=== PATIENT | female | born 1985 | race Caucasian/White ===

== ENCOUNTER → 2017-08-26 07:13 | Outpatient (CLI) | payer OTHER, SELFPAY ==
--- NOTE | 2017-08-26 | DI.US.S_ITS ---
PROCEDURE: US OB >= 14 WEEKS FETUS INDICATIONS: 20 WEEK ANATOMICAL SURVEY OUTSIDE/PRIOR DATING DATA: Last menstrual period (LMP): 04/08/17. LMP-based estimated date of delivery (LUCILLE): 01/13/18. First dating scan (date and location): 06/24/17. Estimated date of delivery (LUCILLE) from first dating scan: 01/11/18. TECHNIQUE: Real-time scanning was performed of the fetus, with image documentation and biometric measurements. Endovaginal scanning: No COMPARISON: [facility], OB COMPLETE LESS THAN 14 WKS, 06/24/2017, 13:20. FINDINGS: General: A single living intrauterine gestation is present. Presentation: Vertex. Placenta: Placental position is anterior, without previa. Amniotic fluid index: 15.8 cm, normal range is 5-24 cm. heart rate: 144 beats per minute. Maternal cervical canal: 3.2 cm long. Normal lower limit is 2.5 cm. biometrics: Biparietal diameter: 20 weeks 1 day Head circumference: 20 weeks 4 days Abdominal circumference: 20 weeks 5 days Femur length: 20 weeks 2 days Estimated gestational age from initial scan: 20 weeks 2 days Composite gestational age from present scan: 20 weeks 3 days Estimated weight and percentile: 359 g, 59th percentile Measurement variability for biometric dating: +/- 7 days from 14 weeks to 15 weeks 6 days gestation, +/- 10 days from 16 weeks to 21 weeks 6 days gestation, +/- 2 weeks from 22 weeks to 27 weeks 6 days gestation, +/- 3 weeks for 28 weeks gestation or later. weight reference: 4500 g or EFW >90/95% is considered macrosomia or large for gestational age. EFW <10% is small for gestational age. EFW 5% or less is considered intra-uterine growth restriction. Anatomic survey: Neuro: Ventricles are non-dilated at less than 10 mm. Cisterna magna is normal at 3-11 mm. Cerebellum is normal in size and morphology. Nuchal skin fold: Normal at less than 6 mm between 14-21 weeks gestational age. Face: Nose and lips, facial profile are normal. Spine: No evidence for spina bifida. Heart: 4-chambered heart is present, with normal ventricular outflow tracts. Diaphragm: Diaphragm is intact. Stomach: Left-sided stomach is present. Kidneys: No hydronephrosis. Normal is less than 5 mm in 2nd trimester, less than 7 mm in 3rd trimester. Cord: 3-vessel cord has orthotopic insertion. Bladder: Normal in size. Extremities: All 4 extremities identified. IMPRESSION: 1. Single living IUP redemonstrated and interval growth is normal. 2. Normal anatomic survey. Dictated by: Stone OROZCO Interpreted: Jonah Early MD on 08/26/2017 at 8:43 Approved by: Jonah Early M.D. on 08/26/2017 at 13:21
== END ==
PROVIDERS: Family Provider Family Medicine; PCP Family Medicine; Visit Provider Family Medicine
DX: Z34.92 Encounter for supervision of normal pregnancy, unspecified, second trimester (principal); Z3A.20 20 weeks gestation of pregnancy
CPT/HCPCS: 76811

== ENCOUNTER → 2017-11-11 13:34 | Outpatient (CLI) | payer OTHER, SELFPAY ==
--- NOTE | 2017-11-11 | DI.US.S_ITS ---
PROCEDURE: US OB LIMITED INDICATIONS: THIRD TRIMESTER BLEEDING/SIZE GREATER THAN DATES OUTSIDE/PRIOR DATING DATA: Last menstrual period (LMP): 04/08/2017. LMP-based estimated date of delivery (LUCILLE): 01/13/2018. First dating scan (date and location): 06/24/2017. Estimated date of delivery (LUCILLE) from first dating scan: 01/11/2018. TECHNIQUE: Real-time scanning was performed of the fetus, with image documentation and biometric measurements. Endovaginal scanning: Not required COMPARISON: [facility], OB >= 14 WEEKS FETUS, 08/26/2017, 7:26. FINDINGS: General: A single living intrauterine gestation is present. Presentation: Vertex. Placenta: Placental position is anterior, without previa. Amniotic fluid index: 16.1 cm, normal range is 5-24 cm. heart rate: 143 beats per minute. Maternal cervical canal: 4.0 cm long. Normal lower limit is 2.5 cm. biometrics: Biparietal diameter: 30 weeks 6 days Head circumference: 31 weeks 3 days Abdominal circumference: 32 weeks 4 days Femur length: 32 weeks 3 days Estimated gestational age from initial scan: 31 weeks 2 days Composite gestational age from present scan: 31 weeks 6 days, normal growth Estimated weight and percentile: 1929 g at the 70th percentile Measurement variability for biometric dating: +/- 7 days from 14 weeks to 15 weeks 6 days gestation, +/- 10 days from 16 weeks to 21 weeks 6 days gestation, +/- 2 weeks from 22 weeks to 27 weeks 6 days gestation, +/- 3 weeks for 28 weeks gestation or later. weight reference: 4500 g or EFW >90/95% is considered macrosomia or large for gestational age. EFW <10% is small for gestational age. EFW 5% or less is considered intra-uterine growth restriction. Other: Not applicable. IMPRESSION: 1. Single, live intrauterine gestation in Vertex lie showing composite gestational age of 31 weeks 6 days, normal growth. 2. Anterior placenta shows no previa or abruption. Dictated by: Julian Matt M.D. on 11/11/2017 at 14:49 Approved by: Julian Matt M.D. on 11/11/2017 at 14:52
== END ==
PROVIDERS: Family Provider Family Medicine; PCP Family Medicine; Visit Provider Family Medicine
DX: Z34.93 Encounter for supervision of normal pregnancy, unspecified, third trimester (principal); Z3A.31 31 weeks gestation of pregnancy
CPT/HCPCS: 76815; 87070; 87205

== ENCOUNTER → 2017-12-19 11:50 | Outpatient (REF) | payer OTHER, SELFPAY | LOC: LAB 11:50 | PROVIDERS: Family Provider Family Medicine; PCP Family Medicine; Visit Provider Family Medicine | DX: Z34.90 Encounter for supervision of normal pregnancy, unspecified, unspecified trimester (principal) | CPT/HCPCS: 87081 ==

== ENCOUNTER → 2018-01-01 09:04 | Outpatient (CLI) | payer OTHER, SELFPAY ==
--- NOTE | 2018-01-01 | DI.US.S_ITS ---
PROCEDURE: US OB LIMITED INDICATIONS: LGA OUTSIDE/PRIOR DATING DATA: Last menstrual period (LMP): 04/08/17. LMP-based estimated date of delivery (LUCILLE): 01/13/18. First dating scan (date and location): 06/24/17. Estimated date of delivery (LUCILLE) from first dating scan: 01/11/18.. TECHNIQUE: Real-time scanning was performed of the fetus, with image documentation and biometric measurements. Endovaginal scanning: No COMPARISON: [facility], OB >= 14 WEEKS FETUS, 08/26/2017, 7:26. [facility], OB LIMITED, 11/11/2017, 14:11. FINDINGS: General: A single living intrauterine gestation is present. Presentation: Vertex. Placenta: Placental position is anterior, without previa. Amniotic fluid index: 6.5 cm, normal range is 5-24 cm. heart rate: 153 beats per minute. Maternal cervical canal: Not well-seen. cm long. Normal lower limit is 2.5 cm. biometrics: Biparietal diameter: 36 weeks Head circumference: 37 weeks Abdominal circumference: 37 weeks 6 days Femur length: 37 weeks 5 days Estimated gestational age from initial scan: 38 weeks 4 days Composite gestational age from present scan: 37 weeks 1 day Estimated weight and percentile: 3230 g; 39 percentile Measurement variability for biometric dating: +/- 7 days from 14 weeks to 15 weeks 6 days gestation, +/- 10 days from 16 weeks to 21 weeks 6 days gestation, +/- 2 weeks from 22 weeks to 27 weeks 6 days gestation, +/- 3 weeks for 28 weeks gestation or later. weight reference: 4500 g or EFW >90/95% is considered macrosomia or large for gestational age. EFW <10% is small for gestational age. EFW 5% or less is considered intra-uterine growth restriction. Other: Not applicable. IMPRESSION: 1. Normal interval growth. Dictated by: Stone OROZCO Interpreted: Jonah Early MD on 01/01/2018 at 9:48 Approved by: Jonah Early M.D. on 01/01/2018 at 14:01
== END ==
PROVIDERS: PCP Family Medicine; Visit Provider Family Medicine
DX: Z36.89 Encounter for other specified antenatal screening (principal); Z3A.37 37 weeks gestation of pregnancy
CPT/HCPCS: 76815

== ENCOUNTER 2018-01-03 03:11 | Inpatient (IN) | payer OTHER, SELFPAY ==
[2018-01-03] MEDS: ZOLPIDEM 5 MG TABLET PO (04:45)
[2018-01-03 05:17] VITALS: BP 128/83; PULSE 78; RESP 16; TEMP 36.7
[2018-01-03] MEDS: LACTATED RINGERS 1,000 ML 100 ML IV ×2 (16:20→22:41)
[2018-01-03 16:58] LABS: Add Manual Diff / Slide Review NO; Basophils Percent Auto 0.5 % (0-2); Eosinophils Percent Auto 0.1 % (2-4); Hematocrit 42.2 % (36-46); Hemoglobin 14.3 g/dL (12.0-16.0); Lymphocytes Percent Auto 7.3 % (25-40); Mean Corpuscular Hemoglobin 31.4 PG (26-34); Mean Corpuscular Volume 92.3 fL (80-100); Monocytes Percent Auto 3.5 % (3-14); Neutrophils Absolute Auto 15300 /uL (3000-5900); Neutrophils Percent Auto 88.6 % (50-75); Platelet Count 264 X10^3/uL (150-400); Red Blood Cell Count 4.57 X10^6/uL (4.0-5.2); Red Cell Distribution Width 13.1 % (11.6-14.8); White Blood Cell Count 17.3 X10^3/uL (4.5-11.0)
[2018-01-03] MEDS: ONDANSETRON 4 MG/2 ML INJ IV (16:58)
--- NOTE | 2018-01-03 19:20 | P.PNOB_ITS ---
Date/Time Date Patient Seen: 01/03/18 Time Patient Seen: 19:18 Pain Control Pain control: epidural Comments: at 38 and 4 7 weeks estimated gestational age with prodrome a labor who presents to labor and delivery for second time today and progressive cervical change. She was requesting anesthesia and epidural was placed at approximately 5:00 p.m.. She has continued to have uterine contractions and is feeling comfortable. Pelvic Exam Dilation (cm): 4 Effacement (%): 80 station: -1 Amniotic membrane status: Intact Contractions Date/Time contractions began: Uterine contractions started at approximately 3: 00 p.m. on 01/02/2018 and became more painful and patient was unable to sleep and presented to Labor and delivery at approximately 4:00 a.m. on 01/03/2018. She is found to be a cm dilated and was ambulated and recheck it and had no cervical change and she was sent home. She then started having an increased intensity of the uterine contractions at approximately 9:00 a.m. on 01/03/2018 and presented to Labor and delivery at approximately 4 PE and was found to have cervical change. She continued to ambulate and was having severe pain with contractions anteriorly as well as nausea. An epidural was placed. Contractions on admission: regular Monitor mode: External Contraction frequency (min): 4 Contraction duration (min): 60 Contraction pattern: Regular Contraction intensity: Moderate Status status: Category l Heart Rate Baseline: 130 Monitor Accelerations: Present Monitor Decelerations: Absent Monitor Variability: Moderate Assessment and Plan Assessment: active labor Plan: continuous present management Comments: Continue with expectant management. Will begin Pitocin if cervical change not made by 10:00 p.m. Continue external tocometer Continue external heart monitor Patient is Rh positive, GBS negative, glucose tolerance test 110 Unremarkable
[2018-01-03 21:10] VITALS: BP 120/68
[2018-01-03] MEDS: OXYTOCIN PREMIX 30 UNIT/500 ML PLAST..BAG IV (22:00)
[2018-01-04] MEDS: ONDANSETRON 4 MG/2 ML INJ IV (00:19)
--- NOTE | 2018-01-04 04:33 | PM.OBPRVD ---
Delivery date: 01/04/18 Intrapartal events: None Induction method: none Delivery augmentation: pitocin Delivery monitor: external FHT and external uterine Route of delivery: Laceration description: Vaginal - 1st Degree Delivery repair: chromic Estimated blood loss (mL): 200 Anesthesia type: Epidural Complications: none Narrative: 32-year-old at 38 and 4/ 7 weeks estimated gestational age presents to Labor and delivery for the 2nd time on the day prior to admission with complaints of painful uterine contractions and cervical change. She was admitted to the hospital felt to be in early active labor. She had unremarkable . Stage I lasted 12 hr and 5 min Patient presented in active labor she continued to ambulate and then requested anesthesia. Epidural was placed at approximately 5:00 p.m.. Epidural was effective she received 3 boluses and had less effect of the epidural as she became complete and when she pushed. External heart monitor was used throughout stage I showing category 1 tracing with baseline 130s and accelerations with a few. The time of prolonged accelerations. There were no decelerations and there was moderate variability throughout stage I. External tocometer showed uterine contractions every 4 min and then they spaced out to every 2-6 minutes and Pitocin augmentation was started at approximately 2200. Patient had spontaneous rupture membranes at 0045 on the date of delivery which was 57 min prior to delivery. Clear fluid. Patient was noted to be complete at 3:05 a.m.. She did 1 push and resolved in anterior lip. Stage II lasted 37 min Patient did not have good analgesia but did have good effective pushing. She was alert and able to allow the baby to sit on the perineum. Baby a was in BRAYAN presentation. The head was delivered and a loose cord, nuchal was reduced on the perineum. Anterior shoulder and posterior shoulder delivered without difficulty and baby was placed on mom's chest. Apgars were 8 at 1 min and 9 at 5 min. Baby had meconium while on the chest. Weight is pending. Stage III lasted 5 min Resulted in the normal spontaneous vaginal delivery of a moderately calcified placenta with a three-vessel cord and the lateral cord insertion. There was a right greater than left labial tear, first-degree which were repaired in a running fashion with 3 0 chromic. Pitocin was run in after baby delivered. At the time this dictation both mom and baby are in stable condition
[2018-01-04] MEDS: DERMOPLAST SPRAY 20% 60 ML 1 SPRAY TOP (08:06)
[2018-01-04] MEDS: DOCUSATE 250 MG CAPSULE PO (08:28)
[2018-01-04] MEDS: PRENATAL VIT,CALC/IRON/FOLIC 1 TABLET 1 TAB PO (08:28)
[2018-01-04] MEDS: LANOLIN OINT 7 GM 1 APPLIC TOP (08:33)
[2018-01-05 06:35] LABS: Add Manual Diff / Slide Review NO; Basophils Percent Auto 0.6 % (0-2); Eosinophils Percent Auto 2.1 % (2-4); Hematocrit 37.2 % (36-46); Hemoglobin 12.6 g/dL (12.0-16.0); Lymphocytes Percent Auto 26.1 % (25-40); Mean Corpuscular HGB Conc 33.8 % (30-36); Mean Corpuscular Hemoglobin 32.1 PG (26-34); Mean Corpuscular Volume 95.1 fL (80-100); Monocytes Percent Auto 7.7 % (3-14); Neutrophils Absolute Auto 6400 /uL (3000-5900); Neutrophils Percent Auto 63.5 % (50-75); Platelet Count 208 X10^3/uL (150-400); Red Blood Cell Count 3.91 X10^6/uL (4.0-5.2); Red Cell Distribution Width 13.6 % (11.6-14.8); White Blood Cell Count 10.1 X10^3/uL (4.5-11.0)
[2018-01-05 08:54] VITALS: BP 113/79; PULSE 67; RESP 14; TEMP 36.1
--- NOTE | 2018-01-05 13:49 | P.DS_ITS ---
Discharge Providers Date of admission: 01/03/18 16:15 Primary care physician: Katia Dodson MD Consults: 01/04/18 04:27 Consult to [employer] Routine Comment: Discharge provider: Katia Dodson MD Discharge Date: 01/05/18 Summary Date Patient Seen: 01/05/18 Time Patient Seen: 09:09 Hospital Course: Mom doing well without any nipple pain from . She is not taking any pain pills or Motrin. Bleeding has subsided. She is tolerating p.o. without difficulty but has not had a bowel movement. Objective exam: Afebrile vital signs are stable Neck is supple Chest clear to auscultation bilaterally Cor: Regular rate and rhythm without murmur Abdomen: Positive bowel sounds soft, uterus well below the umbilicus Extremities: No edema DTRs are intact negative clonus Patient discharged to home in stable condition Pelvic rest, no heavy lifting Routine instructions regarding feeding, breast-feeding, infection, sinus symptoms of concern. Peripartum Data Delivery Method: Natural Vaginal Laceration description: Vaginal - 1st Degree complications: none Status at Discharge Cognitive/behavioral status at discharge: Normal Functional status at discharge: independent ambulation Overall status at discharge: patient is progressing back to baseline Time Spent with Patient Total time spent providing and/or coordinating discharge services: 30 min Greater than 30 minutes Objective Labs Result Diagrams: 01/05/18 06:10 Labs: Laboratory Results - last 24 hr 01/05/18 06:10 WBC 10.1 RBC 3.91 L Hgb 12.6 Hct 37.2 MCV 95.1 MCH 32.1 MCHC 33.8 RDW 13.6 Plt Count 208 Neut % (Auto) 63.5 D Lymph % (Auto) 26.1 [place] % (Auto) 7.7 Eos % (Auto) 2.1 Baso % (Auto) 0.6 Neut # (Auto) 6400 H Discharge Plan Discharge Plan Patient Disposition: Home Discharge Med Rec/Prescriptions Prescriptions: No Action PNV,calcium [id number] acid [PrePlus] 27 mg iron- 1 mg tablet 1 tab PO DAILY RF: 0 Follow up/Referrals: Katia Dodson MD [Primary Care Provider] - (January 19, Friday, at 10:45am with Dr Dodson) Provider Discharge Instructions Diet: Diet as Tolerated Visit Report/Discharge Packet Stand Alone Forms: Discharge: Care Visit Report Forms: Stroke Signs & Symptoms Discharge Data Primary Care Provider: Katia Dodson Attending Provider: Katia Dodson Admit Date/Time: 01/03/18 16:15 Discharges patient from system. Discharge Date/Time: 01/05/18 12:10
== END 2018-01-05 12:10 | disposition home or self-care (01) | DRG 807 ==
PROVIDERS: Admitting Provider Family Medicine; PCP Family Medicine; Visit Provider Family Medicine
DX: O69.1XX0 Labor and delivery complicated by cord around neck, with compression, not applicable or unspecified (principal); Z37.0 Single live birth; Z3A.38 38 weeks gestation of pregnancy; O70.0 First degree perineal laceration during delivery; R11.0 Nausea
CPT/HCPCS: 01967; 36415; 59025; 59050; 85025; 86850; 86900; 86901; G0378; G0379; J2405; J2590

== ENCOUNTER 2018-01-03 13:50 | Outpatient (CLI) | payer OTHER, SELFPAY | END 2018-01-03 14:52 | disposition home or self-care (01) | LOC: OB 01-06 08:53 | PROVIDERS: PCP Family Medicine; Visit Provider Family Medicine | DX: Z34.83 Encounter for supervision of other normal pregnancy, third trimester (principal); Z3A.38 38 weeks gestation of pregnancy | CPT/HCPCS: G0378; G0379 ==

== ENCOUNTER → 2020-07-05 12:08 | Outpatient (CLI) | payer OTHER, SELFPAY ==
[2020-07-05] MEDS: COVID-19 VACC #1, MRNA(MOD) 100 MCG/0.5 ML VIAL IM (12:19)
== END ==
PROVIDERS: PCP Family Medicine; Visit Provider Internal Medicine
DX: Z23 Encounter for immunization (principal)
CPT/HCPCS: 0011A; 91301

== ENCOUNTER → 2020-08-02 09:57 | Outpatient (CLI) | payer OTHER, SELFPAY ==
[2020-08-02] MEDS: COVID-19 VACC #2, MRNA(MOD) 100 MCG/0.5 ML VIAL IM (10:02)
== END ==
PROVIDERS: PCP Family Medicine; Visit Provider Internal Medicine
DX: Z23 Encounter for immunization (principal)
CPT/HCPCS: 0012A; 91301

== ENCOUNTER → 2022-12-27 08:19 | Outpatient (CLI) | payer OTHER, SELFPAY | PROVIDERS: PCP Family Medicine; Visit Provider Physician Assistant | DX: R30.0 Dysuria (principal); R31.9 Hematuria, unspecified | CPT/HCPCS: 87077; 87086; 87186 ==